=== PATIENT | male | born 1990 | race Caucasian/White ===

== ENCOUNTER 2018-10-02 09:57 | Emergency (ER) | payer SELFPAY, OTHER | END 2018-10-02 12:19 | disposition left against medical advice (07) | LOC: FTE 09:57 | DX: Z53.21 Procedure and treatment not carried out due to patient leaving prior to being seen by health care provider (principal) ==

== ENCOUNTER 2018-10-03 07:44 | Emergency (ER) | payer OTHER ==
[2018-10-03] MEDS: KETOROLAC 30 MG INJ IM (10:16)
== END 2018-10-03 10:30 | disposition home or self-care (01) ==
LOC: FTE 07:44
DX: M54.5 Low back pain (principal)
CPT/HCPCS: 96372; 99284-25

== ENCOUNTER 2018-11-13 11:08 | Emergency (ER) | payer OTHER ==
[2018-11-13] MEDS: traMADol 50 MG TAB PO (12:43)
[2018-11-13] MEDS: DEXAMETHASONE 10 MG/ML 1 ML INJ IM (12:44)
[2018-11-13] MEDS: KETOROLAC 60 MG INJ IM (12:44)
== END 2018-11-13 12:51 | disposition home or self-care (01) ==
LOC: FTE 11:08
DX: M54.31 Sciatica, right side (principal); M54.32 Sciatica, left side
CPT/HCPCS: 96372; 99284-25

== ENCOUNTER 2018-12-03 09:11 | Emergency (ER) | payer OTHER ==
[2018-12-03] MEDS: IBUPROFEN 800 MG TAB PO (09:52)
== END 2018-12-03 10:55 | disposition home or self-care (01) ==
LOC: FTE 09:11
DX: M54.2 Cervicalgia (principal); R05 Cough
CPT/HCPCS: 72040; 99283-25

== ENCOUNTER 2018-12-22 16:07 | Emergency (ER) | payer OTHER ==
[2018-12-22] MEDS: KETOROLAC 60 MG INJ IM (18:49)
[2018-12-22] MEDS: HYDROCODONE/APAP (10/325) TAB PO (18:49)
== END 2018-12-22 18:55 | disposition home or self-care (01) ==
LOC: FTE 16:07
DX: M54.5 Low back pain (principal); Z87.891 Personal history of nicotine dependence
CPT/HCPCS: 96372; 99284-25

== ENCOUNTER 2019-01-03 09:16 | Emergency (ER) | payer OTHER | END 2019-01-03 09:51 | disposition home or self-care (01) | LOC: FTE 09:16 | DX: S20.212D Contusion of left front wall of thorax, subsequent encounter (principal); F17.210 Nicotine dependence, cigarettes, uncomplicated; Y04.0XXD Assault by unarmed brawl or fight, subsequent encounter | CPT/HCPCS: 99283; Z7502 ==

== ENCOUNTER 2019-01-07 06:42 | Emergency (ER) | payer OTHER ==
[2019-01-07] MEDS: HYDROCODONE/APAP (5/325) TAB PO (07:09)
[2019-01-07] MEDS: ONDANSETRON (ODT) 4 MG TAB ODT (07:09)
== END 2019-01-07 08:17 | disposition home or self-care (01) ==
LOC: FTE 06:42
DX: R07.81 Pleurodynia (principal); J45.909 Unspecified asthma, uncomplicated; F17.210 Nicotine dependence, cigarettes, uncomplicated
CPT/HCPCS: 71045; 71100; 99283-25

== ENCOUNTER 2019-02-05 09:42 | Emergency (ER) | payer OTHER | END 2019-02-05 10:25 | disposition home or self-care (01) | LOC: FTE 09:42 | DX: M54.5 Low back pain (principal); J45.909 Unspecified asthma, uncomplicated; F17.210 Nicotine dependence, cigarettes, uncomplicated | CPT/HCPCS: 99283; Z7502 ==

== ENCOUNTER 2019-03-17 10:21 | Emergency (ER) | payer OTHER ==
[2019-03-17] MEDS: KETOROLAC 60 MG INJ IM (10:55)
[2019-03-17] MEDS: HYDROCODONE/APAP (5/325) TAB PO (10:56)
== END 2019-03-17 11:13 | disposition home or self-care (01) ==
LOC: FTE 11:13
DX: M54.5 Low back pain (principal); J45.909 Unspecified asthma, uncomplicated; F17.210 Nicotine dependence, cigarettes, uncomplicated
CPT/HCPCS: 96372; 99284-25

== ENCOUNTER 2019-03-29 10:25 | Emergency (ER) | payer OTHER ==
[2019-03-29] MEDS: KETOROLAC 60 MG INJ IM (12:07)
[2019-03-29] MEDS: HYDROCODONE/APAP (10/325) TAB PO (12:07)
== END 2019-03-29 12:15 | disposition home or self-care (01) ==
LOC: FTE 10:25
DX: M54.5 Low back pain (principal); J45.909 Unspecified asthma, uncomplicated
CPT/HCPCS: 96372; 99284-25

== ENCOUNTER 2019-04-10 08:54 | Emergency (ER) | payer OTHER ==
[2019-04-10] MEDS: ONDANSETRON (ODT) 4 MG TAB ODT (09:57)
[2019-04-10] MEDS: HYDROCODONE/APAP (5/325) TAB PO (09:57)
[2019-04-10] MEDS: DEXAMETHASONE 10 MG/ML 1 ML INJ IM (09:57)
== END 2019-04-10 10:12 | disposition home or self-care (01) ==
LOC: FTE 08:54
DX: M54.30 Sciatica, unspecified side (principal); J45.909 Unspecified asthma, uncomplicated; Z76.0 Encounter for issue of repeat prescription
CPT/HCPCS: 96372; 99284-25

== ENCOUNTER 2019-04-14 08:47 | Emergency (ER) | payer OTHER ==
[2019-04-14] MEDS: IBUPROFEN 800 MG TAB PO (09:29)
== END 2019-04-14 09:40 | disposition home or self-care (01) ==
LOC: FTE 09:40
DX: J45.909 Unspecified asthma, uncomplicated (principal)
CPT/HCPCS: 99283; Z7502